=== PATIENT | female | born 1950 | race Caucasian/White ===

== ENCOUNTER 2017-11-11 06:49 | Day surgery (SDC) | payer MEDICARE ==
[2017-11-07 11:10] LABS: BASOPHILS % (AUTO) 0.3 % (0-1); EOSINOPHILS # (AUTO) 0.1 X10'3 (0-0.9); EOSINOPHILS % (AUTO) 1.4 % (0-6); LYMPHOCYTES # (AUTO) 1.4 X10'3 (1.1-4.8); LYMPHOCYTES % (AUTO) 18.5 % (21-51); MEAN CORPUSCULAR HEMOGLOBIN 31.2 PG (27.0-31.0); MEAN CORPUSCULAR VOLUME 89.1 FL (78-98); MONOCYTES # (AUTO) 0.8 X10'3 (0-0.9); MONOCYTES % (AUTO) 10.1 % (2-12); NEUTROPHILS # (AUTO) 5.2 X10'3 (1.8-7.7); NEUTROPHILS % (AUTO) 69.7 % (42-75); PRE OP HEMATOCRIT 42.1 % (35.0-45.0); PRE OP HEMOGLOBIN 14.8 g/dL (12.0-16.0); PRE OP PLATELET COUNT 209 X10'3 (140-440); RED BLOOD COUNT 4.73 X10'6 (4.20-5.60); RED CELL DISTRIBUTION WIDTH 13.4 % (11.5-14.5)
[2017-11-07 11:25] LABS: ALBUMIN 3.8 G/DL (3.4-5.0); ALBUMIN/GLOBULIN RATIO 1.2 (1.1-1.5); ALKALINE PHOSPHATASE 47 IU/L (46-116); BLOOD UREA NITROGEN 18 MG/DL (7-18); BUN/CREATININE RATIO 17.6 (6.6-38.0); CALCIUM 9.5 MG/DL (8.5-10.1); CHLORIDE 98 MMOL/L (99-107); CREATININE 1.02 MG/DL (0.40-0.90); PRE OP ALT 31 U/L (30-65); PRE OP ANION GAP 12 (8-16); PRE OP AST 20 U/L (10-37); PRE OP BILIRUB, TOTAL 0.7 MG/DL (0.0-1.0); PRE OP GLUCOSE 104 MG/DL (70-104); PRE OP SODIUM 138 MMOL/L (135-145); TOTAL CARBON DIOXIDE 27.7 MMOL/L (24-32); TOTAL PROTEIN 7.1 G/DL (6.4-8.2); eGFR 54 ML/MIN
[~2017-11-11] VITALS: Ht 165.1 cm; Wt 83.0 kg
[~2017-11-11 06:49] MED LIST: B CO1CAP5 PO; BETA1TAB20 PO; CHLO25TA10 PO; IBUP-24 PO; LEVO5TAB29 PO; LISI10TA4 PO; ceFAZolin 2gm in dextrose, iso 100 ML IV ONE; famotidine 20mg tablet PO ONE; ringers solution, lacted 1,000 ML IV SCH
[2017-11-11 07:00] VITALS: BP 141/76
[2017-11-11] MEDS ORDERED: LIDOcaine 0.5% (5mg/ml) 50ml vial ONE (08:23)
[2017-11-11 08:26] LABS: ISTAT CREATININE 0.8 mg/dL (0.6-1.1); ISTAT HGB 13.9 g/dl (12.0-16.0); ISTAT IONIZED CALCIUM 1.21 mmol/L (1.03-1.32); POC BUN/CREATININE RATIO 17.5 (6.6-38.0)
[2017-11-11] MEDS ORDERED: ringers solution, lacted 1,000 ML IV SCH (09:08)
[2017-11-11] MEDS ORDERED: proCHLORperazine 10 MG/2 ml inj IV PRN (09:10)
[2017-11-11] MEDS ORDERED: ondansetron/PF 4mg/2ml inj IV PRN (09:10)
[2017-11-11] MEDS ORDERED: morphine 4 MG/ML inj SYRINge IV PRN ×2 (09:10)
[2017-11-11] MEDS ORDERED: meperidine/PF 25mg/ml syringe IV PRN ×3 (09:10)
[2017-11-11] MEDS ORDERED: BUPIVAcaine/PF 7.5mg/ml (0.75%) 10ml vial ONE (09:32)
[2017-11-11] MEDS ORDERED: midazolam 2 mg/2 ml injection ONE (09:49)
[2017-11-11] MEDS ORDERED: fentaNYL/PF 50MCG/1 ML 2ML syringe ONE (09:49)
[2017-11-11] MEDS ORDERED: propofol inj 20 ML IV ONE (10:00)
[2017-11-11 10:33] VITALS: BP 131/59
[2017-11-11 10:43] VITALS: BP 114/65
[2017-11-11 10:53] VITALS: BP 110/72
[2017-11-11 11:03] VITALS: BP 112/74
[2017-11-11 11:13] VITALS: BP 110/72
== END 2017-11-11 11:13 | disposition home or self-care (01) ==
LOC: PAS 06:49
PROVIDERS: ATTEND Orthopaedic Surgery Hand Surgery
DX: M18.11 Unilateral primary osteoarthritis of first carpometacarpal joint, right hand (principal); M25.741 Osteophyte, right hand; I10 Essential (primary) hypertension; E89.0 Postprocedural hypothyroidism; Z79.1 Long term (current) use of non-steroidal anti-inflammatories (NSAID); Z91.041 Radiographic dye allergy status; Z87.891 Personal history of nicotine dependence; Z90.89 Acquired absence of other organs; Z90.49 Acquired absence of other specified parts of digestive tract; Z79.899 Other long term (current) drug therapy; Z98.890 Other specified postprocedural states
CPT/HCPCS: 25447; 36415; 80047; 85025; 93005; A6222; A6449; J0690; J2001; J2250; J2704; J3010; J3490; J7120; L8630; 80053

== ENCOUNTER 2022-02-25 06:33 | Day surgery (SDC) | payer MEDICARE, OTHER ==
[2022-02-15 15:07] LABS: BASOPHILS % (AUTO) 0.4 % (0-1); EOSINOPHILS % (AUTO) 0.5 % (0-6); LYMPHOCYTES # (AUTO) 1.3 X10'3 (1.1-4.8); LYMPHOCYTES % (AUTO) 14.7 % (21-51); MEAN CORPUSCULAR HEMOGLOBIN 31.2 PG (27.0-31.0); MEAN CORPUSCULAR HGB CONC 34.2 g/dL (33.0-36.5); MEAN CORPUSCULAR VOLUME 91.2 FL (78-98); MEAN PLATELET VOLUME 8.4 FL (7.4-10.4); MONOCYTES # (AUTO) 0.7 X10'3 (0-0.9); MONOCYTES % (AUTO) 8.4 % (2-12); NEUTROPHILS # (AUTO) 6.7 X10'3 (1.8-7.7); PRE OP HEMATOCRIT 41.1 % (35.0-45.0); PRE OP HEMOGLOBIN 14.1 g/dL (12.0-16.0); PRE OP PLATELET COUNT 219 X10'3 (140-440); RED CELL DISTRIBUTION WIDTH 14.9 % (11.5-14.5)
[2022-02-15 15:18] LABS: ALBUMIN 3.7 G/DL (3.4-5.0); ALBUMIN/GLOBULIN RATIO 1.3 (1.1-1.5); ALKALINE PHOSPHATASE 44 IU/L (46-116); BLOOD UREA NITROGEN 17 MG/DL (7-18); BUN/CREATININE RATIO 17.3 (6.6-38.0); CALCIUM 9.4 MG/DL (8.5-10.1); CHLORIDE 99 MMOL/L (99-107); CREATININE 0.98 MG/DL (0.40-0.90); PRE OP ALT 21 U/L (30-65); PRE OP ANION GAP 8 (8-16); PRE OP AST 14 U/L (10-37); PRE OP BILIRUB, TOTAL 0.5 MG/DL (0.0-1.0); PRE OP GLUCOSE 102 MG/DL (70-104); PRE OP POTASSIUM 3.9 MMOL/L (3.4-5.1); PRE OP SODIUM 141 MMOL/L (135-145); TOTAL CARBON DIOXIDE 34.2 MMOL/L (24-32); TOTAL PROTEIN 6.6 G/DL (6.4-8.2); eGFR 56 ML/MIN
[~2022-02-25] VITALS: Ht 165.1 cm; Wt 81.6 kg
[~2022-02-25 06:33] MED LIST changes: -B CO1CAP5 PO; -BETA1TAB20 PO; -IBUP-24 PO; +LEVO25TA7 PO; -LEVO5TAB29 PO; +LISI10TA27 PO; -LISI10TA4 PO; -ceFAZolin 2gm in dextrose, iso 100 ML IV ONE; +ceFAZolin inj. 2,000 MG in dextrose 5%-water 100 ML IV ONE
[2022-02-25 06:40] VITALS: BP 153/92
[2022-02-25] MEDS ORDERED: hydrALAZINE 20mg/ml inj. IV PRN (07:05)
[2022-02-25] MEDS ORDERED: ringers solution, lacted 1,000 ML IV SCH (07:05)
[2022-02-25] MEDS ORDERED: labetalol 20mg/4ml (5mg/ml) syringe IV PRN (07:05)
[2022-02-25] MEDS ORDERED: ondansetron/PF 4mg/2ml inj IV PRN (07:05)
[2022-02-25] MEDS ORDERED: morphine 2 MG/ML inj. syringe IV PRN (07:05)
[2022-02-25] MEDS ORDERED: morphine 4 MG/ML inj SYRINge IV PRN (07:05)
[2022-02-25] MEDS ORDERED: fentaNYL/PF 50MCG/1 ML 2ML syringe IV PRN ×2 (07:05)
[2022-02-25] MEDS ORDERED: TETRACAINE 0.5% 4 ML OPHTHALMIC DROPS ONE (08:24)
[2022-02-25] MEDS ORDERED: LIDOCAINE 1%/EPI 1:100,000 inj. 10 ML multi-dose vial ONE (08:24)
[2022-02-25] MEDS ORDERED: fentaNYL/PF 50MCG/1 ML 2ML syringe ONE (08:40)
[2022-02-25] MEDS ORDERED: midazolam 1 mg/ML 2ml injection ONE (08:40)
[2022-02-25] MEDS ORDERED: mineral oil/petrolatum ophthal oint ONE (08:45)
[2022-02-25] MEDS ORDERED: labetalol 20mg/4ml (5mg/ml) syringe IV ONE (08:53)
[2022-02-25 09:25] VITALS: BP 152/88
--- NOTE | 2022-02-25 09:25 | NUR ---
Received from OR via [facility], accompanied by Anesthesiologist and report given by SUJEY Anesthesiologist. PATIENT WAKING UP, DENIES PAIN, VSS, 20G PIV TO RIGHT HAND, BILATERAL UPPER LID SUTURES DRESSING C/D/I. Addendum: 02/25/22 at 0940 by Nash Ruiz RN Amended: Links added.
[2022-02-25 09:30] VITALS: BP 152/71
[2022-02-25 09:40] VITALS: BP 140/70
[2022-02-25 09:50] VITALS: BP 142/75
[2022-02-25 10:00] VITALS: BP 155/80
--- NOTE | 2022-02-25 10:05 | NUR ---
ALL DISCHARGE CRITERIA HAS BEEN MET. VSS, PAIN AT A TOLERABLE LEVEL, VOIDING AND ABLE TO SAFELY AMBULATE AND TRANSFER SELF. IV TAKEN OUT WITHOUT ANY COMPLICATIONS. ALL DISCHARGE INSTRUCTIONS COVERED WITH PATIENT AND ALL QUESTIONS ANSWERED. PATIENT TAKEN OUT VIA WHEELCHAIR WITH ALL BELONGINGS TO PERSONAL VEHICLE WHERE FAMILY DROVE PATIENT HOME. Addendum: 02/25/22 at 1015 by Nash Ruiz RN Amended: Links added.
== END 2022-02-25 10:05 | disposition home or self-care (01) ==
LOC: PAS 06:33
PROVIDERS: ATTEND Specialist
DX: H02.831 Dermatochalasis of right upper eyelid (principal); H02.834 Dermatochalasis of left upper eyelid; Z79.899 Other long term (current) drug therapy; Z98.890 Other specified postprocedural states; Z90.49 Acquired absence of other specified parts of digestive tract; Z98.51 Tubal ligation status; Z91.041 Radiographic dye allergy status
CPT/HCPCS: 15822; 36415; 80053; 82948; 85025; 93005; J0690; J2250; J3010; J3490; J7030; J7060; J7120; Z7506; Z7512; A4215; A4615; A6410; A7000